=== PATIENT | male | born 1950 | race Caucasian/White ===

== ENCOUNTER → 2019-03-07 | Outpatient (CLI) | payer MEDICARE ==
--- NOTE | 2019-03-07 17:47 | KCIC ---
Two-view left hand radiographs 03/07/2019 CLINICAL HISTORY: Chronic left wrist and hand pain. PA and lateral digital radiographs of the left hand were obtained. No fracture or dislocation of the left hand is seen. Mild to moderate degenerative changes are seen throughout the interphalangeal joints and MCP joints of the left hand. Severe degenerative changes are seen involving the first carpal metacarpal joint. Moderate degenerative changes are seen involving the radiocarpal joint. IMPRESSION: Degenerative changes are seen involving the left hand and wrist as discussed above. No acute osseous abnormality is seen. Electronically signed by: Herber Hilliard MD (03/07/2019 5:44 PM) [facility]
--- NOTE | 2019-03-07 23:42 | KCIC ---
Right hip 2 views. HISTORY: Right hip pain, M 25.551 2 views were taken of the right hip. There is severe arthritis with complete loss of the joint space superiorly. There are prominent subchondral cysts or erosions. There is prominent spurring on the femoral head. There is no acute fracture. IMPRESSION: 1. Marked arthritis right hip. Electronically signed by: Surjit Perdue MD (03/07/2019 11:40 PM) [facility]
--- NOTE | 2019-03-07 23:45 | KCIC ---
Left wrist 2 views. HISTORY: Left wrist pain M 25.532 2 views were taken of the left wrist. There is mild arthritis at the first carpal metacarpal joint with mild joint space narrowing and spurring. There is mild irregularity at the radiocarpal joint with mild joint space narrowing. There is no acute fracture. There is no bony destructive process. There is mild joint space narrowing between the navicular and lunate. IMPRESSION: 1. Mild arthritis left wrist. Electronically signed by: Surjit Perdue MD (03/07/2019 11:42 PM) [facility]
--- NOTE | 2019-03-07 23:47 | KCIC ---
Bilateral knees 3 views each. HISTORY: Knee pain, M 25.561. Left knee 3 views were taken of the left knee. There is mild joint space narrowing in the medial joint compartment. There is slight spurring. There is no fracture or bony destructive process.. There is no joint effusion. There are prominent varicose veins in the soft tissues. Right knee 3 views were taken of the right knee. There is no fracture or osseous abnormality. Joint space is better maintained on the right. There is no acute fracture. There is no joint effusion. Again noted are varicose veins in the soft tissues. IMPRESSION: 1. Arthritis with joint space narrowing medial joint compartment of the left knee. 2. No acute osseous abnormality in the right knee. 3. Varicose veins noted bilaterally. Electronically signed by: Surjit Perdue MD (03/07/2019 11:44 PM) [facility]
== END | disposition home or self-care (01) ==
LOC: KCIC 15:29
PROVIDERS: ATTEND Family Medicine
DX: M17.12 Unilateral primary osteoarthritis, left knee (principal); M19.032 Primary osteoarthritis, left wrist; M18.12 Unilateral primary osteoarthritis of first carpometacarpal joint, left hand; M16.11 Unilateral primary osteoarthritis, right hip; M19.042 Primary osteoarthritis, left hand; I83.93 Asymptomatic varicose veins of bilateral lower extremities; M25.561 Pain in right knee
CPT/HCPCS: 73100; 73120; 73502; 73562

== ENCOUNTER → 2019-04-29 | Outpatient (CLI) | payer MEDICARE ==
[~2019-04-29] MED LIST: CRESTOR40 MG PO; LISI10TA2 PO; MELO15TA23 PO
[2019-04-29 10:04] LABS: BASO % 0 % (0-3); EOS # 0.1 x10^3/uL (0.0-0.7); EOS % 1 % (0-3); HEMATOCRIT 45.2 % (39.0-53.0); HEMOGLOBIN 15.6 g/dL (13.0-17.5); LYMPH % 38 % (24-48); MEAN CORPUSCULAR HEMOGLOBIN 32 pg (25-35); MEAN CORPUSCULAR HGB CONC 35 g/dL (31-37); MEAN CORPUSCULAR VOLUME 92 fL (79-100); MONO # 0.7 x10^3/uL (0.0-1.1); MONO % 8 % (0-9); NEUT # 4.2 x10^3/uL (1.8-7.7); NEUT % 53 % (31-73); PLATELET COUNT 237 x10^3/uL (140-400)
[2019-04-29 10:25] LABS: ALBUMIN 4.1 g/dL (3.4-5.0); CREATININE 1.2 mg/dL (0.7-1.3); GFR 60.2; POTASSIUM 3.7 mmol/L (3.5-5.1)
--- NOTE | 2019-04-29 11:42 | EKG ---
[facility] [address] [place] [address] Test Date: 2019-04-29 Test Time: 11:39:07 Pat Name: ANNA BURDEN Department: Room: Gender: M Workforce [employer] Program Director: TERI : 1950 Requested By: ROLAND CROWE Order Number: [id number] Reading MD: Measurements Intervals [place]onal[place]on Rate: 59 P: 52 [place]: 186 QRS: 0 QRSD: 96 T: 11 QT: 422 QTc: 422 Interpretive Statements SINUS RHYTHM LEFTWARD AXIS OTHERWISE NORMAL ECG RI6.02 No previous ECG available for comparison
--- NOTE | 2019-04-29 16:15 | RAD ---
AP and Lateral Views of the Chest 04/29/2019 8:39 AM Indication: Preoperative Comparison: None Findings: There is no focal consolidation or infiltrate identified. The cardiomediastinal silhouette is within normal limits. There is no evidence of pneumothorax or pleural effusion. Degenerative changes of the thoracic spine noted without evidence of acute osseous abnormality. Impression: No evidence of acute cardiopulmonary process. Electronically signed by: Jaime Webber MD (04/29/2019 4:13 PM) [id number]
[2019-05-01 19:08] LABS: HEMOGLOBIN A1C 5.2 % (4.8-5.6)
== END | disposition home or self-care (01) ==
LOC: SURGPAT 10:00
PROVIDERS: ATTEND Orthopaedic Surgery Sports Medicine
DX: Z01.818 Encounter for other preprocedural examination (principal); M16.11 Unilateral primary osteoarthritis, right hip; E78.5 Hyperlipidemia, unspecified; M47.814 Spondylosis without myelopathy or radiculopathy, thoracic region
CPT/HCPCS: 36415; 71046; 80048; 82040; 82306; 83036; 85025; 85610; 85651; 85730; 87641; 93005

== ENCOUNTER → 2019-07-18 | Outpatient (CLI) | payer MEDICARE ==
[~2019-07-18] MED LIST changes: +FERR-36 PO; +MULT-245 PO; +OXYC1TAB15 PO; +WARF5TAB2 PO
[2019-07-18 09:48] LABS: ALBUMIN 3.9 g/dL (3.4-5.0); C-REACTIVE PROTEIN 0.7 mg/L (0-3.3); CALCIUM 8.7 mg/dL (8.5-10.1); CREATININE 1.3 mg/dL (0.7-1.3); GFR 54.9; POTASSIUM 4.2 mmol/L (3.5-5.1)
[2019-07-18 09:56] LABS: BASO % 1 % (0-3); EOS # 0.1 x10^3/uL (0.0-0.7); EOS % 1 % (0-3); HEMATOCRIT 45.1 % (39.0-53.0); HEMOGLOBIN 15.6 g/dL (13.0-17.5); LYMPH # 2.3 x10^3/uL (1.0-4.8); LYMPH % 33 % (24-48); MEAN CORPUSCULAR HEMOGLOBIN 32 pg (25-35); MEAN CORPUSCULAR HGB CONC 35 g/dL (31-37); MEAN CORPUSCULAR VOLUME 93 fL (79-100); MONO # 0.6 x10^3/uL (0.0-1.1); MONO % 9 % (0-9); NEUT # 3.9 x10^3/uL (1.8-7.7); NEUT % 56 % (31-73); PLATELET COUNT 243 x10^3/uL (140-400); RED BLOOD COUNT 4.86 x10^6/uL (4.30-5.70); RED CELL DISTRIBUTION WIDTH 12.5 % (11.5-14.5); WHITE BLOOD COUNT 6.9 x10^3/uL (4.0-11.0)
[2019-07-18 10:03] LABS: PROTHROMBIN TIME PATIENT 12.3 SEC (11.7-14.0)
[2019-07-19 00:07] LABS: HEMOGLOBIN A1C 5.3 % (4.8-5.6)
== END ==
LOC: SURGPAT 08:21
PROVIDERS: ATTEND Orthopaedic Surgery Sports Medicine
DX: Z01.818 Encounter for other preprocedural examination (principal); Z11.59 Encounter for screening for other viral diseases; M16.11 Unilateral primary osteoarthritis, right hip; E78.5 Hyperlipidemia, unspecified; Z79.01 Long term (current) use of anticoagulants; Z79.899 Other long term (current) drug therapy
CPT/HCPCS: 36415; 80048; 82040; 82607; 83036; 85025; 85610; 85730; 86140; 87641; U0003

== ENCOUNTER 2019-07-22 05:48 | Inpatient (IN) | payer MEDICARE ==
[~2019-07-22] VITALS: Ht 188 cm; Wt 107.5 kg
[2019-07-22] VITALS (11 sets, daily range): BP systolic 104–135; BP diastolic 66–92
[~2019-07-22 05:48] MED LIST changes: -OXYC1TAB15 PO; -WARF5TAB2 PO
[2019-07-22] MEDS ORDERED: GABAPENTIN 300 MG CAPSULE. PO PRN (06:00)
[2019-07-22] MEDS ORDERED: ACETAMINOPHEN 500 MG TABLET PO PRN (06:00)
[2019-07-22] MEDS ORDERED: TRANEXAMIC ACID 1,000 MG in IV NS 50ML -- 1ST BAG INJ ONE (06:00)
[2019-07-22] MEDS ORDERED: TV=100ml MORPHINE 5 MG, KETOROLAC 30 MG, ROPIVacaine 0.5% PF 60 ML, EPINEPH... INT ART ONE ×5 (06:00)
[2019-07-22] MEDS ORDERED: MELOXICAM 7.5 MG TABLET PO PRN ×2 (06:00→09:00)
[2019-07-22] MEDS ORDERED: ONDANSETRON PF 4 MG/2 ML VIAL. ONE (06:23)
[2019-07-22] MEDS ORDERED: DEXAMETHASONE SOD PHOS 4 MG/ML VIAL ONE (06:23)
[2019-07-22] MEDS ORDERED: PROPOFOL 10 MG/ML (20ML) VIAL. IV ONE (06:23)
[2019-07-22] MEDS ORDERED: LIDOCAINE 2% PF 5 ML VIAL. ONE (06:23)
[2019-07-22] MEDS ORDERED: ROCURONIUM 50 MG/5 ML VIAL. ONE ×2 (06:23→08:31)
[2019-07-22] MEDS: IV RINGERS,LACTATED 1000ML 1,000 ML IV SCH ×2 (06:36→09:52)
[2019-07-22] MEDS ORDERED: MIDAZOLAM HCL/PF 2 MG/2 ML VIAL. ONE (06:58)
[2019-07-22] MEDS ORDERED: fentaNYL PF VIAL 100 MCG/2 ML VIAL ONE (06:58)
[2019-07-22] MEDS ORDERED: fentaNYL PF VIAL 100 MCG/2 ML VIAL IV PRN (07:00)
[2019-07-22] MEDS ORDERED: PROCHLORPERAZINE 10 MG/2 ML VIAL. IV PRN (07:00)
[2019-07-22] MEDS ORDERED: ONDANSETRON PF 4 MG/2 ML VIAL. IV PRN (07:00)
[2019-07-22] MEDS ORDERED: MORPHINE SULFATE 2 MG/ML VIAL. IV PRN (07:00)
[2019-07-22] MEDS ORDERED: LIDOCAINE 1% PF 2 ML VIAL. ID PRN (07:00)
[2019-07-22 07:04] LABS: PROTHROMBIN TIME PATIENT 14.5 SEC (11.7-14.0)
[2019-07-22] MEDS ORDERED: IV NORMAL SALINE 1000ML BAG 1,000 ML IV SCH (07:04)
[2019-07-22] MEDS ORDERED: diphenhydrAMINE 50 MG/ML VIAL IVP PRN (07:15)
[2019-07-22] MEDS ORDERED: fentaNYL PF VIAL 100 MCG/2 ML VIAL IVP PRN (07:15)
[2019-07-22] MEDS ORDERED: 0.9 % SODIUM CHLORIDE 10 ML DISP.SYRIN. IV PRN (07:15)
[2019-07-22] MEDS ORDERED: MORPHINE SULFATE 2 MG/ML VIAL. IVP PRN (07:15)
[2019-07-22] MEDS ORDERED: ZOLPIDEM 5 MG TABLET. PO PRN (07:15)
[2019-07-22] MEDS ORDERED: METOCLOPRAMIDE HCL 10 MG/2 ML VIAL. IVP PRN (07:15)
[2019-07-22] MEDS ORDERED: CALCIUM CARBONATE 500 MG TAB.CHEW PO PRN (07:15)
[2019-07-22] MEDS ORDERED: PROCHLORPERAZINE 5 MG TABLET. PO PRN (07:15)
[2019-07-22] MEDS ORDERED: DEXTROSE 50% 25 GM / 50ML DISP.SYRIN. IV PRN (07:15)
[2019-07-22] MEDS: FERROUS SULFATE 325 MG TABLET. PO SCH ×2 (08:00→17:10)
[2019-07-22] MEDS ORDERED: TRANEXAMIC ACID 1,000 MG in IV NS 50ML -- 2ND BAG INJ ONE (08:00)
[2019-07-22] MEDS ORDERED: GLYCOPYRROLATE 1 MG/5 ML VIAL. ONE (08:14)
[2019-07-22] MEDS ORDERED: NEOSTIGMINE METHYLSULFATE 5 MG/5 ML SYRINGE. ONE (08:14)
[2019-07-22] MEDS ORDERED: NON FORMULARY ITEM (Multivitamin (Multi Vitamin Daily) 1 TAB) PO SCH (09:00)
[2019-07-22] MEDS: MULTIVITAMIN with MINERAL TABLET. PO SCH (09:00)
[2019-07-22] MEDS ORDERED: ePHEDrine PF IN SALINE 50 MG/10 ML SYRINGE. IV ONE (09:12)
--- NOTE | 2019-07-22 09:31 | PDOC4 ---
Operative Note Operative Note Date of procedure: 07/22/2019 Surgeon: Tone Crowe Assistants: Peter Villagomez and Giovanny Dowell Preoperative diagnosis: Advanced right hip primary degenerative joint disease Postoperative diagnosis: Same Procedure performed: Right total hip arthroplasty Anesthesia: General Blood loss: 250 mL Complications: None Findings: Advanced degenerative joint disease of right hip Components inserted: [employer] 16mm R3 shell with a 40 mm 20 degree posterior liner and a size 10 standard femoral component with a 40+4 Oxinium head Reason for procedure: Patient is a very pleasant 69-year-old gentleman who has had persistent and progressive pain interfering with his activities of daily living and recreational activities due to his right hip pain. Clinical and radiographic examination were consistent with the above preoperative diagnosis. He had tried and failed conservative therapies and because of this we had a discussion of the risks, benefits, and alternatives and he elected to proceed. Description of procedure: Patient was greeted in the preoperative area by myself or the correct extremity was verified and marked. He was taken to the operative suite, his antibiotics started as he was brought back. Once in the operating room, transferred gently supine to the operating table and secured to the bed with all pressure points padded in a lateral decubitus position with the right side up. This occurred after successful induction of a general anesthetic. Axillary roll was used. Down pressure points were padded. I appreciate his leg lengths in this position. We then proceeded prep and drape right lower extremity and hip in her usual sterile fashion including an Ioban sandwich. Our standard preoperative timeout was conducted. I then palpated marked surface anatomy and libby a line for my posterior lateral skin incision and incised skin accordance with this. I dissected subcutaneous tissue with electrocautery, ensuring hemostasis as I proceeded. Identified his fascia and incised this in line with the skin incision and bluntly split gluteus mayela. I then placed my self-retaining retractor, held the leg in slight internal rotation, excised some bursal tissue and identified the quadratus. I took this down with electrocautery followed by the piriformis which was tagged for later repair. I then opened his hip capsule in a T-type incision, tagging ends for later repair., This allowed us to deliver the femoral head into the operative field. I made medina for my offset and length and took these measurements. I then measured 1 cm proximal to the lesser trochanter August with electrocautery on the neck for my femoral neck cut and then made my neck cut, delivering bony remnant from the operative field. We then reposition the leg, added our anterior and posterior acetabular retractors. I took down osteophytes and appreciated his [place] anatomy. I then began reaming and reamed up to the above size which gave good punctate bleeding bony bed. I then impacted my cup in position using the crossbar attachment on the insertion handle as well as his referencing his [place] anatomy. After fully seating the cup, it should be noted that I had thoroughly irrigated the acetabulum out of her before impacting the cup. I then placed a screw into his posterior column. After this, I inserted my polyethylene liner, impacting in position and making sure it had fully seated. I then reposition the leg and added my proximal femoral elevator after removing my acetabular retractors. I used a liangie cutting osteotome followed by canal finding reamer and a lateralizing reamer. I then began broaching and broached to the above size. I then trialed various head and offset lengths. We then redislocated the hip and I removed the broach, the canal was thoroughly irrigated. I then impacted my femoral stem into position and we again trialed and neck lengths selecting the above size which helped reproduce the measurements, and gave excellent stability and leg length. After this, I redislocated the hip and washed and dried the Alejandre taper region and gently impacted my femoral head into position, we then irrigated everything out I inspected the cup, no debris. We then reduced the hip. I then closed capsule with simple interrupted #2 Ethibond. Piriformis was reapproximated through drill tunnels. Quadratus was repaired with #2 Ethibond. After this, fascia was closed with running #2 Quill. Inverted interrupted 2-0 Vicryl was used in a multilayered fashion for subcutaneous tissue and skin followed by running 3-0 Monocryl. Prior to wound closure, all counts correct x2. Prior to closing the skin and subcutaneous tissue, our periarticular mixture was injected in the mann-incisional soft tissues. After completing wound closure, the hip was cl eansed and dried and our incisional wound VAC was applied. After this, the patient was laid supine and transferred gently supine to the hospital bed and taken to PACU in stable and extubated condition. No complications. Postoperative plan is to admit the patient to the joint center. He received DVT and antibiotic prophylaxis. He will also receive PT and OT. TONE CROWE II, MD Jul 22, 2019 09:31
[2019-07-22] MEDS: fentaNYL PF VIAL 100 MCG/2 ML VIAL IV PRN ×4 (09:44→10:21)
[2019-07-22] MEDS: HYDROmorphone 2 MG/ML VIAL IV PRN ×2 (10:06→10:28)
--- NOTE | 2019-07-22 10:35 | RAD ---
Single view pelvis obtained because of postop assessment COMPARISON: 04/18/2019 pelvis x-ray FINDINGS: Single AP view pelvis shows interval right total hip arthroplasty in good alignment. Expected postoperative changes in the right soft tissues with scattered foci of gas are noted. Left hip shows distal rib deformity to the left femoral head neck junction that could predispose to femoral acetabular impingement. The pelvic ring appears intact. No acute fracture or aggressive osseous lesions seen. IMPRESSION: Good alignment of the right total hip arthroplasty. No acute complication shown by x-ray Electronically signed by: Fareed Thibodeaux MD (07/22/2019 10:31 AM) [id number]
--- NOTE | 2019-07-22 11:05 | NUR ---
Arrived to unit by bed from PACU. Awakens easily and answerers questions appropriately. Right hip DANIELLA dressing is d/i. Able to wiggle toes easily, pedal pulses + bilaterally and warm touch. BEKAH's and WESTON's on bilaterally. IVF's intact and infusing on right hand. O2 at 2L per n/c and sating 94%. Oriented to room and controls. Side rails up x's 2 with call light in reach. Took couple sips of apple juice tolerated it well. Cont. monitor.
[2019-07-22] MEDS: ONDANSETRON PF 4 MG/2 ML VIAL. IVP SCH ×2 (12:00→17:49)
[2019-07-22] MEDS: ONDANSETRON ODT 4 MG TAB.RAPDIS. PO SCH ×2 (12:00→17:49)
[2019-07-22] MEDS: LISINOPRIL 10 MG TABLET PO SCH (13:11)
[2019-07-22] MEDS ORDERED: WARFARIN 7.5 MG TABLET. PO ONE (16:00)
[2019-07-22] MEDS ORDERED: FERROUS SULFATE 325 MG TABLET. PO SCH (16:00)
[2019-07-22] MEDS: ATORVASTATIN CALCIUM 40 MG TABLET. PO SCH (21:28)
[2019-07-23 03:10] VITALS: BP 95/60
[2019-07-23 04:32] LABS: HEMATOCRIT 35.9 % (39.0-53.0); HEMOGLOBIN 12.6 g/dL (13.0-17.5)
[2019-07-23 04:40] LABS: PROTHROMBIN TIME PATIENT 15.8 SEC (11.7-14.0)
[2019-07-23] MEDS: ONDANSETRON ODT 4 MG TAB.RAPDIS. PO SCH ×2 (06:00)
[2019-07-23] MEDS ORDERED: MAGNESIUM HYDROXIDE 2,400 MG/30 ML ORAL.SUSP. PO PRN (06:00)
[2019-07-23] MEDS: ONDANSETRON PF 4 MG/2 ML VIAL. IVP SCH ×2 (06:00)
[2019-07-23 06:21] VITALS: BP 106/62
--- NOTE | 2019-07-23 07:35 | PDOC ---
ELLYN PANDEY APRN 07/23/19 0735: ORTHO PROGRESS NOTES Subjective The patient states that the pain is tolerable and feels much better after surgery. Post-op Day: 1 Procedure Right total hip arthroplasty Vitals Vital Signs Date Time Temp Pulse Resp B/P (MAP) Pulse Ox O2 Delivery O2 Flow Rate FiO2 07/23/19 06:21 98.1 63 22 106/62 (77) 92 Room Air 98.1 07/22/19 14:42 2.0 Labs Laboratory Tests Test 07/22/19 06:30 07/23/19 04:20 Prothrombin Time 14.5 SEC (11.7-14.0) 15.8 SEC (11.7-14.0) Prothromb Time International Ratio 1.2 (0.8-1.1) 1.3 (0.8-1.1) Activated Partial Thromboplast Time 30 SEC (24-38) Hemoglobin 12.6 g/dL (13.0-17.5) Hematocrit 35.9 % (39.0-53.0) Mean Corpuscular Hemoglobin Concent 35 g/dL (31-37) Laboratory Tests Test 07/23/19 04:20 Hemoglobin 12.6 g/dL (13.0-17.5) Hematocrit 35.9 % (39.0-53.0) Mean Corpuscular Hemoglobin Concent 35 g/dL (31-37) Prothrombin Time 15.8 SEC (11.7-14.0) Prothromb Time International Ratio 1.3 (0.8-1.1) Notes Awake and alert Assessment and Plan Postop day 1 status post right total hip arthroplasty Motor and sensation intact distally Calf is soft and nontender. Dressing is dry and intact PT today ROLAND CROWE II, MD 07/23/19 0916: ORTHO PROGRESS NOTES Assessment and Plan Patient was seen and examined today by myself. He is doing very well. PT and OT today, we will see how he does and consider discharge home possibly tomorrow. ELLYN PANDEY APRN Jul 23, 2019 07:35 ROLAND CROWE II, MD Jul 23, 2019 09:16
[2019-07-23 08:08] VITALS: BP 111/74
[2019-07-23] MEDS: MULTIVITAMIN with MINERAL TABLET. PO SCH (08:08)
[2019-07-23] MEDS: ACETAMINOPHEN 500 MG TABLET PO SCH ×3 (08:09→21:06)
[2019-07-23] MEDS: SENNOSIDES/DOCUSATE 8.6/50MG TABLET. PO SCH (08:09)
[2019-07-23] MEDS: FERROUS SULFATE 325 MG TABLET. PO SCH ×2 (08:09→16:47)
[2019-07-23] MEDS: LISINOPRIL 10 MG TABLET PO SCH (08:09)
[2019-07-23] MEDS: oxyCODONE IR 5 MG TABLET PO PRN (08:15)
--- NOTE | 2019-07-23 08:19 | NUR ---
Lisinopril held for BP 111/74 P74
[2019-07-23] MEDS ORDERED: ONDANSETRON ODT 4 MG TAB.RAPDIS. PO PRN (12:00)
[2019-07-23] MEDS ORDERED: ONDANSETRON PF 4 MG/2 ML VIAL. IVP PRN (12:00)
--- NOTE | 2019-07-23 15:17 | NUR ---
Pharmacy Warfarin Dosing Note S:Pharmacy consulted to assist with anticoagulation therapy started 07/21/19 with target INR: 1.6 - 2.5 O:ANNA BURDEN is a 69 year old M with CORRINE LABS: Last INR: 1.3 Last HGB: 12.6 Last HCT: 35.9 Last PLT: Last dose of 7.5 mg given on 07/22/19 at 1631 Vitamin K given: N A:INR of 1.3 is below desired range. Target range for this patient is: 1.6 - 2.5 P: Warfarin dose: 5 mg Today at 1600 Bridge Therapy: None Next INR due tomorrow Pharmacy anticoagulation service will continue to follow. Ayse Leblanc RPH, 07/23/19 1634
[2019-07-23] MEDS ORDERED: BISACODYL 10 MG SUPP.RECT. PR PRN (16:00)
[2019-07-23] MEDS ORDERED: WARFARIN 5 MG TABLET. PO ONE (16:00)
[2019-07-23 18:05] VITALS: BP 142/95
[2019-07-23] MEDS: ATORVASTATIN CALCIUM 40 MG TABLET. PO SCH (21:06)
[2019-07-24] MEDS: ACETAMINOPHEN 500 MG TABLET PO SCH ×2 (03:00→08:07)
[2019-07-24 03:39] LABS: HEMOGLOBIN 13.2 g/dL (13.0-17.5)
[2019-07-24 03:54] LABS: PROTHROMBIN TIME PATIENT 15.9 SEC (11.7-14.0)
[2019-07-24 06:27] VITALS: BP 140/89
[2019-07-24 08:06] VITALS: BP 156/94
[2019-07-24] MEDS: FERROUS SULFATE 325 MG TABLET. PO SCH (08:06)
[2019-07-24] MEDS: LISINOPRIL 10 MG TABLET PO SCH (08:06)
[2019-07-24] MEDS: SENNOSIDES/DOCUSATE 8.6/50MG TABLET. PO SCH (08:07)
[2019-07-24] MEDS: MULTIVITAMIN with MINERAL TABLET. PO SCH (08:07)
--- NOTE | 2019-07-24 11:36 | NUR ---
Pharmacy Warfarin Dosing Note S:Pharmacy consulted to assist with anticoagulation therapy started 07/21/19 with target INR: 1.6 - 2.5 O:ANNA BURDEN is a 69 year old M with CORRINE LABS: Last INR: 1.3 Last HGB: 13.2 Last HCT: 35.9 Last PLT: Last dose of 5 mg given on 07/23/19 at 1631 Previous Regimen: Vitamin K given: N Drug Interaction Changes: Ongoing Drug Interactions: A:INR of 1.3 is below desired range. Target range for this patient is: 1.6 - 2.5 P: Warfarin dose: 6 mg Today at 1600 Bridge Therapy: None Next INR due IN AM Pharmacy anticoagulation service will continue to follow. JACKELYN RODRÍGUEZ RPH, 07/24/19 [id number]
--- NOTE | 2019-07-24 12:25 | SNU/HH DC ---
DISCHARGE WITH HOME HEALTH DISCHARGE INFORMATION: Discharge Date: Jul 24, 2019 Final Diagnosis: Advanced primary right hip degenerative joint disease, status post arthroplasty Condition on Discharge: Stable CODE STATUS: Code Status: Full HOME HEALTH: Face to Face: I certify this patient is under my care and that I, or a nurse practitioner or physician's housekeeping assistant working with me, had a face to face encounter that meets the physician face to face encounter requirements with this patient on []. Medical Complications: S/P Joint Replacement Usp For: Admin/Educate Injections RN For Eval/Treatment: Yes (Blood draw) Physical Therapy For: Evalulation/Treatment Occupational Therapy For: Evaluation/Treatment Pt Meets Homebound Status: Poor coordination w/ amb., Limited distance walking POST DISCHARGE ORDERS: Activity Instructions for Disc: Activity as tolerated Weight Bearing Status after Di: As tolerated Bathing Instructions: Shower-keep dressing dry DIET AFTER DISCHARGE: Regular Wound/Incision Care: Ice to area for comfort, Keep wound/cast CDI, Do not change dressing FOLLOW-UP: Follow up with: Sowmya in 2wks Warfarin Follow UP: per Pharmacy CERTIFICATION STATEMENT: Certification Statement: Certification Statement: Based on the above finding, I certify that this patient is confined to the home and needs intermittent long-term care, physical therapy and/or speech therapy, or continues to need occupational therapy.~ This patient is under my care, and I have initiated the establishment of the plan of care.~ This patient will be followed by myself or a community physician who will periodically review the plan of care. Home Meds Reported Medications Ferrous Sulfate (IRON) 325 Mg Tablet, 65 MG PO DAILY16 for SUPPLIMENT, TAB 07/18/19 Multivitamin (MULTI VITAMIN DAILY) 1 Each Tablet, 1 TAB PO DAILY for SUPPLIMENT for 30 Days, #30 TAB 0 Refills 07/18/19 Meloxicam (MELOXICAM) 15 Mg Tablet, 15 MG PO PRN DAILY PRN for pain control, TAB 04/29/19 Rosuvastatin Calcium (CRESTOR) 40 Mg Tablet, 20 MG PO HS for FOR CHOLESTEROL, #30 TAB 0 Refills 04/29/19 Lisinopril (LISINOPRIL) 10 Mg Tablet, 10 MG PO DAILY for FOR HYPERTENSION, #30 TAB 0 Refills 04/29/19 ROLAND CROWE II, MD Jul 24, 2019 12:25
--- NOTE | 2019-07-24 12:26 | PDOC ---
ORTHO PROGRESS NOTES Subjective He feels like he has made really great progress with therapy. He denies pain whatsoever. Vitals Vital Signs Date Time Temp Pulse Resp B/P (MAP) Pulse Ox O2 Delivery O2 Flow Rate FiO2 07/24/19 08:06 80 156/94 07/24/19 07:50 Room Air 07/24/19 06:27 98.4 20 91 98.4 Labs Laboratory Tests Test 07/23/19 04:20 07/24/19 03:25 Hemoglobin 12.6 g/dL (13.0-17.5) 13.2 g/dL (13.0-17.5) Hematocrit 35.9 % (39.0-53.0) 38.0 % (39.0-53.0) Mean Corpuscular Hemoglobin Concent 35 g/dL (31-37) 35 g/dL (31-37) Prothrombin Time 15.8 SEC (11.7-14.0) 15.9 SEC (11.7-14.0) Prothromb Time International Ratio 1.3 (0.8-1.1) 1.3 (0.8-1.1) Laboratory Tests Test 07/24/19 03:25 Hemoglobin 13.2 g/dL (13.0-17.5) Hematocrit 38.0 % (39.0-53.0) Mean Corpuscular Hemoglobin Concent 35 g/dL (31-37) Prothrombin Time 15.9 SEC (11.7-14.0) Prothromb Time International Ratio 1.3 (0.8-1.1) Notes He is sitting comfortably in a chair, motor and sensation are intact right lower extremity. Dressing is intact. Assessment and Plan We will discharge him home with home health today. He will continue Coumadin. PT and OT. I will see him back here in 2 weeks, sooner should a problem arise ROLAND CROWE II, MD Jul 24, 2019 12:26
[2019-07-24] MEDS ORDERED: WARF5TAB2 PO (12:57)
[2019-07-24] MEDS ORDERED: OXYC1TAB15 PO (12:57)
[2019-07-24] MEDS: oxyCODONE IR 5 MG TABLET PO PRN (13:24)
[2019-07-24] MEDS ORDERED: WARFARIN 3 MG TABLET. PO ONE (14:00)
--- NOTE | 2019-07-24 14:09 | NUR ---
Patient left the building with family around 1410. Discharge education completed by this nurse, therapy, pharmacy, and Dr Deng prior to dismissal. DANIELLA dressing intact and working properly. No IV present at discharge. Coumadin instructions gone over in strict detail by this nurse and therapy. Script given for percocet and Home Health set up by finished goods planner prior to dismissal. No concerns noted at discharge.
--- NOTE | 2019-07-25 12:56 | PDOC3 ---
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 Guevara is a 69 old male who had longstanding pain attributable to his advanced primary right hip degenerative joint disease. He has tried conservative therapies and these fail, we discussed total hip arthroplasty, the risks, benefits, and alternatives and he wished to proceed. He tolerated surgery well and recovered well from anesthesia. He was taken up to the joint center where he received DVT and antibiotic prophylaxis as well as PT and OT. His hospital course was essentially uneventful. He recovered very well and was maintaining his ADLs fairly well. He was hemodynamically stable and afebrile, normal bowel and bladder function throughout the hospitalization. He was tolerating regular diet. His pain is controlled on oral pain medicine. Discharge Information Condition at Discharge: Stable Follow Up: Weeks Disposition/Orders: D/C to Home w/ HH Scheduled Ferrous Sulfate (Iron) 325 Mg Tablet, 65 MG PO DAILY16 for SUPPLIMENT, (Reported) Entered as Reported by: JEAN LEVIN on 07/18/19 0848 Last Taken: Unknown Dose on 07/20/19 Last Action: Continued on 07/22/19706 by SORAYA CROWE MD Lisinopril (Lisinopril) 10 Mg Tablet, 10 MG PO DAILY for FOR HYPERTENSION, #30 Ref 0 (Reported) Entered as Reported by: CAIN RUELAS on 04/29/19 1308 Last Taken: Unknown Dose on 07/20/19 Last Action: Continued on 07/22/19706 by SORAYA CROWE MD Multivitamin (Multi Vitamin Daily) 1 Each Tablet, 1 TAB PO DAILY for SUPPLIMENT for 30 Days, #30 Ref 0 (Reported) Entered as Reported by: JEAN LEVIN on 07/18/19 0848 Last Taken: Unknown Dose on 07/15/19 Last Action: Converted on 07/22/19 0707 by SORAYA CROWE MD Rosuvastatin Calcium (Crestor) 40 Mg Tablet, 20 MG PO HS for FOR CHOLESTEROL, #30 Ref 0 (Reported) Entered as Reported by: CAIN RUELAS on 04/29/19 1308 Last Taken: Unknown Dose on 07/20/19 Last Action: Converted on 07/22/19 07 by SORAYA CROWE MD Warfarin Sodium (Coumadin) 5 Mg Tablet, 5 MG PO DAILY for DVT prevention, #30 (Reported) Entered as Reported by: NISH PICKETT on 07/24/19 1257 Scheduled PRN Meloxicam (Meloxicam) 15 Mg Tablet, 15 MG PO PRN DAILY PRN for pain control, (Reported) Entered as Reported by: CAIN RUELAS on 04/29/19 1308 Last Taken: Unknown Dose on 07/21/19 Last Action: Converted on 07/22/1907 by SORAYA CROWE MD Oxycodone/Apap 5-325 (Percocet 5-325 Mg Tablet ) 1 Each Tablet, 1 TAB PO Q3- 4HRS PRN for PAIN, #40 Ref 0 (Reported) Entered as Reported by: NISH PICKETT on 07/24/19 1257 Patient Instructions Patient Instructions He will be discharged home with home health. I will see him back in 2 weeks, sooner should problems arise. Worrisome signs and symptoms were discussed. He will be on Coumadin for 1 month, he can weight-bear as tolerated. Justicifation of Admission Dx: Justifications for Admission: Justification of Admission Dx: N/A ROLAND CROWE II, MD Jul 25, 2019 12:56
--- NOTE | 2019-07-25 16:06 | PATHOLOGY ---
[facility] Accession Number: [id number] . 01 Material submitted: . hip - RIGHT FEMORAL HEAD. Modifiers: right . 01 Clinical history: . Osteoarthritis . 02 Diagnosis: Femoral head, right total hip arthroplasty: - Advanced degenerative arthritis, with focal subarticular cystic degeneration. (JPM:[facility] 07/25/2019) [facility] 07/25/2019 0904 Local . 02 Electronically signed: . Peter Crockett MD, Pathologist NPI- [id number] . 01 Gross description: . The specimen is received in formalin, labeled "Yousif Guevara, femoral head-right". Received is a femoral head with attached femoral neck measuring 5.7 x 5.7 x 8.2 cm in greatest dimensions. The articular surface is light guo to guo-brown, irregular in contour, and displays a moderate amount of eburnation, as well as osteophytic lipping. Sectioning reveals yellow-guo cut surfaces with a single cystic structure measuring 0.6 cm filled with a slight amount of cloudy mucoid material. The specimen is submitted representatively in cassette A1, following decalcification. (CAA; 07/23/2019) QAC/QAC 07/23/2019 1037 Local . 02 Pathologist provided ICD-10: M16.11 . 02 CPT . 265248, [id number] Specimen Comment: A courtesy copy of this report has been sent to [phone], [phone] Specimen Comment: [id number] Specimen Comment: Report sent to / DR WEBER Performed at: 01 [facility] [address], [place], [place] [id number] MD Devon Hart MD Phone: [phone] Performed at: 02 [facility] [address], [place] [id number] MD Peter Crockett MD Phone: [phone]
== END 2019-07-24 14:10 | disposition home health service (06) | DRG 470 ==
LOC: SURG 05:48 → 4 SOUTHEST 10:32
PROVIDERS: ADMIT Orthopaedic Surgery Sports Medicine; ATTEND Orthopaedic Surgery Sports Medicine
PROC: 0SR906Z Replacement of Right Hip Joint with Oxidized Zirconium on Polyethylene Synthetic Substitute, Open Approach (ICD-10-PCS; principal; 2019-07-22 07:30)
DX: M16.11 Unilateral primary osteoarthritis, right hip (principal); Z79.01 Long term (current) use of anticoagulants; Z79.899 Other long term (current) drug therapy
CPT/HCPCS: 36415; 72170; 85014; 85018; 85610; 85730; 86850; 86900; 86901; 88304; 88311; A7015; C1713; J0171; J0696; J1100; J1170; J1885; J2250; J2270; J2405; J2704; J2710; J2795; J3010; J3490; J7030; J7120; 97116-GP; 97150-GP; 97530-GP; 97535-GO; G0378